=== PATIENT | female | born 2000 | race Hispanic/Latino ===

== ENCOUNTER 2021-09-13 09:14 | Emergency (ER) | payer SELFPAY ==
[~2021-09-13] VITALS: Ht 162.6 cm; Wt 65.8 kg
[2021-09-13] MEDS ORDERED: DICYCLOMINE HCL20 MG PO (09:36)
[2021-09-13] MEDS ORDERED: ONDANSETRON ODT4 MG PO (09:36)
[2021-09-13] MEDS ORDERED: DICYCLOMINE HCL 20 MG/2 ML VIAL IM ONE (09:45)
[2021-09-13] MEDS ORDERED: ONDANSETRON HCL 4 MG ORAL DISINTEGRATING TAB PO ONE (09:45)
[2021-09-13 10:21] LABS: CLARITY,URINE CLEAR (CLEAR); COLOR,URINE YELLOW (YELLOW); EPITHELIAL CELLS,URINE RARE /LPF; KETONES,URINE NEGATIVE (NEGATIVE); LEUKOCYTE ESTERASE ,URINE TRACE (NEGATIVE); NITRITE,URINE NEGATIVE (NEGATIVE); PROTEIN,URINE DIPSTICK NEGATIVE (NEGATIVE); RBC,URINE 0-5 /HPF (0-5); URINE UROBILINOGEN 0.2 mg/dL (0.2 - 1); WBC,URINE (MAN) 0-5 /HPF (0-5)
== END 2021-09-13 10:45 | disposition home or self-care (01) ==
LOC: ER 09:27
DX: R11.2 Nausea with vomiting, unspecified (principal); K52.9 Noninfective gastroenteritis and colitis, unspecified; R10.9 Unspecified abdominal pain
CPT/HCPCS: 81001; 81025; 99282; J0500; Q0162